=== PATIENT | male | born 1970 | race Caucasian/White ===

== ENCOUNTER 2019-05-15 20:37 | Emergency (ER) | payer OTHER ==
[~2019-05-15] VITALS: Ht 185.4 cm; Wt 116.1 kg
[2019-05-15] MEDS ORDERED: HYDROCHLOROTHIA25 MG PO (20:55)
[2019-05-15] MEDS ORDERED: ZESTRIL40 M1 PO (20:55)
[2019-05-15] MEDS ORDERED: NORVASC5 MG PO (20:57)
[2019-05-15] MEDS ORDERED: ZETIA10 MG PO (20:57)
== END 2019-05-16 12:12 | disposition home or self-care (01) ==
LOC: ER 20:37
DX: R55 Syncope and collapse (principal); E87.6 Hypokalemia

== ENCOUNTER 2022-11-07 08:24 | Emergency (ER) | payer OTHER ==
[~2022-11-07] VITALS: Ht 182.9 cm; Wt 121.6 kg
[~2022-11-07 08:24] MED LIST: HYDROCHLOROTHIA25 MG PO; NORVASC5 MG PO; ZESTRIL40 M1 PO; ZETIA10 MG PO
[2022-11-07] MEDS ORDERED: PEPCID AC20 MG PO (14:31)
[2022-11-07] MEDS ORDERED: CIPRO500 MG PO (14:31)
[2022-11-07] MEDS ORDERED: METRONIDAZOLE500 MG PO (14:31)
[2022-11-07] MEDS ORDERED: INTESTINEX680 M1 PO (14:31)
== END 2022-11-07 16:43 ==
LOC: ER 08:24
DX: K57.32 Diverticulitis of large intestine without perforation or abscess without bleeding (principal); K57.30 Diverticulosis of large intestine without perforation or abscess without bleeding; I10 Essential (primary) hypertension

== ENCOUNTER 2023-07-23 11:56 | Inpatient (IN) | payer OTHER ==
[~2023-07-23] VITALS: Ht 185.4 cm; Wt 124.7 kg
[~2023-07-23 11:56] MED LIST changes: +CIPRO500 MG PO; +INTESTINEX680 M1 PO; +METRONIDAZOLE500 MG PO; +PEPCID AC20 MG PO
== END 2023-07-25 19:05 | disposition home or self-care (01) | DRG 392 ==
LOC: ER 11:56 → SURG 19:55
PROVIDERS: Nurse Practitioner Family; ADMIT Specialist; ATTEND Specialist
PROC: BW21YZZ Computerized Tomography (CT Scan) of Abdomen and Pelvis using Other Contrast (ICD-10-PCS; principal; 2023-07-23)
DX: K57.32 Diverticulitis of large intestine without perforation or abscess without bleeding (principal); N32.1 Vesicointestinal fistula; D72.829 Elevated white blood cell count, unspecified

== ENCOUNTER 2024-12-30 13:57 | Outpatient (CLI) | payer OTHER | END 2024-12-30 14:03 | disposition home or self-care (01) | LOC: RAD 13:57 | PROVIDERS: ATTEND Orthopaedic Surgery | DX: M25.561 Pain in right knee (principal) ==